=== PATIENT | male | born 2005 | race Caucasian/White ===

== ENCOUNTER 2023-11-12 21:38 | Emergency (ER) | payer BC, OTHER, SELFPAY ==
[2023-11-12 21:40] VITALS: BP 137/98
[2023-11-12 22:31] LABS: % Basophils 0.2 % (0-2); % Eosinophils 0.6 % (0-6); % Immature Granulocytes 0.3 % (0-0.5); % Lymphocytes 13.3 % (20.5-51.1); % Monocytes 5.3 % (1.7-9.3); % Neutrophils 80.3 % (42.2-75.2); Absolute Eosinophils 0.1 10^3/uL (0-0.7); Absolute Lymphocytes 1.4 10^3/uL (1.2-3.4); Absolute Monocytes 0.6 10^3/uL (0.1-0.6); Absolute Neutrophils 8.7 10^3/uL (1.4-6.5); Hematocrit 42.7 % (39.0-52.0); Hemoglobin 15.5 g/dL (13.0-18.0); Mean Corp Hgb Conc. 36.3 g/dL (33.0-37.0); Mean Corpuscular Hgb 28.5 pg (27.0-31.0); Mean Corpuscular Volume 78.6 fL (80.0-94.0); Mean Platelet Volume 9.1 fL (7.4-10.4); Nucleated Red Blood Cells % 0 % (-); Platelet Count 402 10^3/uL (130-400); Red Blood Cell Count 5.43 10^6/uL (4.70-6.10); Red Cell Dist. Width 12.4 % (11.5-14.5); White Blood Cell Count 10.9 10^3/uL (4.8-10.8)
[2023-11-12] MEDS: DECADRON 10 MG IV (22:32)
[2023-11-12] MEDS: BENADRYL 25 MG IV (22:32)
[2023-11-12] MEDS: ADRENALIN 0.299999999999999989 MG IM (22:35)
--- NOTE | 2023-11-12 22:36 | ED.GENMED ---
History of Present Illness
General
Chief Complaint: Allergic Reaction
Source: patient and family
Exam Limitations: none
Time Seen by Provider: 11/12/23 22:01
Nursing documentation reviewed up to this point in time: agreed with
History of Present Illness
History of Present Illness:
18-year-old male limited past medical history yesterday had some rash on his face and upper extremity total was here with his eczema given topical steroid which improved, tonight went to bed, woke up with facial swelling lip swelling, parents
brought him here minimal itching mild warmth no tongue swelling no wheezing does have some hives on his upper extremities, apparently family member had similar presentation with thyroid disease, no new soaps no travel no weight loss or weight gain
no new foods took Benadryl at home is feeling a bit better
Past History
Past History
ED Past Medical History: None
ED Past Surgical History: None
Social History
Tobacco: Non-smoker
Alcohol: None
Drug: None
Personal: Single
Living: with family
Family History
Family History: Other (Thyroid disorder)
Review of Systems
Review of Systems
All Other Systems: Not applicable
Constitutional: Denies fever or chills
EENT: Reports no symptoms
Respiratory: Reports no symptoms
Cardiac: Reports no symptoms
ABD/GI: Reports no symptoms
: Reports no symptoms
Musculoskeletal: Reports no symptoms
Skin: Reports itching (Mild) and rash
Phy Exam
Physical Exam
Physical Exam:
Physical Exam
General: no apparent distress, not acutely ill
Neck: Facial redness and swelling, upper and lower lip swelling no tongue swelling no wheezing or stridor
Heart: s1/s2 regular rate and rhythm, no murmur. equal radial pulses.
Lungs: no acute respiratory distress. clear bilaterally
Abdomen: Nontender
Neuro: alert and oriented. no focal neurological deficits
Skin: Upper extremity chest urticaria
Psychiatric: well kept. interactive and cooperative
Extremities: no edema.
Course
Orders/Labs/Results
Orders:
Orders
11/12/23 22:13
Cardiac Monitoring- Treatment ONCE
11/12/23 22:20
Dexamethasone Sod Phosphate [Decadron] 10 mg IV NOW STA
Diphenhydramine [Benadryl] 25 mg IV NOW STA
11/12/23 22:23
EPINEPHrine PF [Adrenalin] 0.3 mg IM NOW STA
11/12/23 22:27
Complete Blood Count/With Diff Urgent
Comprehensive Metabolic Panel Urgent
TSH Urgent
Abnormal Lab Results
11/12/23
22:27
WBC 10.9 H 10^3/uL
(4.8-10.8)
MCV 78.6 L fL
(80.0-94.0)
Plt Count 402 H 10^3/uL
(130-400)
Absolute Neuts (auto) 8.7 H 10^3/uL
(1.4-6.5)
Neutrophils % 80.3 H %
(42.2-75.2)
Lymphocytes % 13.3 L %
(20.5-51.1)
Glucose 127 H mg/dl
(70-99)
Total Bilirubin 2.0 H mg/dl
(0.2-1.3)
11/12/23 22:27
11/12/23 22:27
Vital Signs
Initial and Last Documented VS:
Initial Vital Signs
Temp Pulse Resp BP Pulse Ox
98.1 F 138 20 137/98 98
11/12/23 21:40 11/12/23 21:40 11/12/23 21:40 11/12/23 21:40 11/12/23 21:40
Last Documented Vital Signs
Temp Pulse Resp BP Pulse Ox
98.1 F 126 25 137/98 96
11/12/23 21:40 11/12/23 22:15 11/12/23 22:15 11/12/23 21:40 11/12/23 22:15
MDM/Problems Addressed
Differential Diagnosis Includes:
Allergic, idiopathic, thyroid is possible
MDM/Problems Addressed:
Facial swelling
*Pulse Oximetry
Patient hypoxic: no
*Forklift Picker Interpretation
Rate: tachycardiac
Interpretation: abnormal
Heart Rate: 135
Rhythm: sinus
*Critical Care Note
Total Time (30-74mins, 75-104mins- exclusive of procedures): Not Applicable
Update Note
Update Note:
Update patient feeling better labs are noted
ED Attending Note
-
Portions of this chart may have been created with voice recognition software.� Occasional wrong word or��sound alike� substitutions may have occurred due to the inherent limitations of voice recognition software.
Discharge Plan
Departure
Patient Disposition: Home (Routine Discharge)
Date of Disposition: 11/12/23
Time of Disposition: 23:26
Patient with high blood pressure during this ER visit?: No
Condition: Good
Discharge Problem:
Allergic reaction
Instructions: Hives (DC)
Prescriptions:
New
methylprednisolone [Medrol (Rom)] 4 mg tablets,dose pack
See Rx Instructions .ROUTE .COMPLEX Qty: 21 0RF
Rx Instructions:
for 6 days
diphenhydramine HCl [Benadryl] 25 mg capsule
25 mg PO Q8H PRN (Reason: allergic reaction) Qty: 20 0RF
epinephrine [EpiPen] 0.3 mg/0.3 mL auto-injector
0.3 mg IM .STAT PRN (Reason: anaphylaxis) Qty: 1 6RF
No Action
sulfamethoxazole-trimethoprim 1 TABLET tablet
1 tab PO BID Qty: 14 0RF
Referrals:
NONE,* [Active] -
Shweta Bledsoe MD [Active] - Next open appointment
Interventions
Interventions:
*Risk Screen - Suicide Last Done: 11/12/23 21:40
*General Assessment Last Done: 11/12/23 21:40
*Neglect/Abuse Screening Last Done: 11/12/23 21:40
Discharge Date and Time
Print Language: GABONESE
[2023-11-12 22:47] LABS: ALT (SGPT) 27 U/L (0-50); AST (SGOT) 27 U/L (17-59); Albumin 4.2 g/dl (3.5-5.0); Alkaline Phosphatase 64 U/L (38-126); Blood Urea Nitrogen 11 mg/dl (9-20); Calcium 9.3 mg/dl (8.4-10.2); Carbon Dioxide 27 mmol/L (22-30); Chloride 101 mmol/L (98-107); Glucose 127 mg/dl (70-99); Potassium 3.8 mmol/L (3.5-5.1); Sodium 139 mmol/L (135-145); Total Protein 6.9 g/dl (6.3-8.2); eGFR > 60.00
[2023-11-12 23:17] LABS: TSH 1.49 uIU/ml (0.47-4.68)
== END 2023-11-12 23:56 | disposition home or self-care (01) ==
LOC: EMR 21:38
PROVIDERS: EMERGENCY PHYSICIAN Emergency Medicine; FAMILY PHYSICIAN Family Medicine
DX: T78.40XA Allergy, unspecified, initial encounter (principal); X58.XXXA Exposure to other specified factors, initial encounter; R00.0 Tachycardia, unspecified; Z83.49 Family history of other endocrine, nutritional and metabolic diseases
CPT/HCPCS: 99283; 96374; 96375; 96372; 80053; 84443; 85025